=== PATIENT | female | born 1970 | race American Indian/Alaskan Native ===

== ENCOUNTER 2017-08-27 13:12 | Outpatient (CLI) | payer OTHER ==
--- NOTE | 2017-08-28 07:52 | Mammography Report ---
Screening mammogram: The patient had reduction surgery bilaterally. There is mild architectural change bilaterally consistent with prior surgical procedures. The finding is not otherwise remarkable and there is a generally fatty-replaced breast pattern. CAD used. Impression: Benign breast pattern. Recommendation: Annual mammogram followup. BI-RADS CATEGORY: 1 = Negative ACR BI-RADS MAMMOGRAPHIC CODES: 0 = Needs additional imaging evaluation; 1 = Negative; 2 = Benign; 3 = Probably benign; 4 = Suspicious; 5 = Malignant; 6 = Known biopsy-proven malignancy COMMENT: 1. Dense breast tissue, i.e., adenosis, fibrocystic changes, etc., may obscure an underlying neoplasm. 2. Approximately 10% of cancers are not detected with mammography. 3. A negative mammography report should not delay biopsy if a clinically suspicious mass is present.
== END 2017-08-27 13:13 | disposition home or self-care (01) ==
LOC: MAMMO 13:12
PROVIDERS: ATTEND Family Medicine
DX: Z12.31 Encounter for screening mammogram for malignant neoplasm of breast (principal)
CPT/HCPCS: 77067

== ENCOUNTER 2019-07-17 05:40 | Day surgery (SDC) | payer OTHER ==
[~2019-07-17 05:40] MED LIST: LACTATED RINGERS 1,000 ML IV SCH; SODIUM CHLORIDE 0.9% IRR 1,500 ML BOTTLE IR ONE
[2019-07-17] MEDS ORDERED: SCOPOLAMINE TRANSDERMAL PATCH 72 HR TD NR (06:00)
[2019-07-17] MEDS ORDERED: ceFAZolin/Water 2 GM/20 ML 2 GM/20 ML SYRINGE IV NR (06:00)
[2019-07-17] MEDS ORDERED: ENOXAPARIN 40 MG/0.4 ML INJ SUB-Q SCH (06:00)
[2019-07-17] MEDS ORDERED: GABAPENTIN 300 MG CAP PO NR (06:00)
[2019-07-17] MEDS ORDERED: CELECOXIB 200 MG CAP PO NR (06:00)
[2019-07-17] MEDS ORDERED: MIDAZOLAM 2 MG/2 ML INJ IV NR (06:00)
[2019-07-17] MEDS ORDERED: BACTERIOSTATIC SODIUM CHLORIDE 0.9% 30 ML VIAL INFILTRATI ONE (06:34)
[2019-07-17] MEDS ORDERED: SODIUM CHLORIDE 0.9% 1000 ML 1,000 ML, EPINEPHrine/PF 1:1,000 1 MG, LIDOCAINE 1% 20 mL ... IJ SCH (07:00)
[2019-07-17] MEDS ORDERED: LIDOCAINE (1%) 10 MG/1 ML VIAL 20 ML MDV ONE (07:14)
--- NOTE | 2019-07-17 07:17 | Anesthesia Day of Surgery ---
Anesthesia Day of Surgery - Day of Surgery Patient Examined: Yes Patient H&P Reviewed: Yes Patient is NPO: Yes
[2019-07-17] MEDS ORDERED: HYDROmorphone 1 MG/1 ML INJ IV PRN (07:20)
[2019-07-17] MEDS ORDERED: ONDANSETRON 4 MG/2 ML INJ IV PRN (07:20)
--- NOTE | 2019-07-17 07:20 | Anesthesia Consultation ---
Anesthesia Consult and Med Hx Date of service: 07/17/19 - Airway Anesthetic Teeth Evaluation: Crowns (BROKEN) ROM Head & Neck: Adequate Mental/Hyoid Distance: Adequate Mallampati Class: Class II Intubation Access Assessment: Good - Pre-Operative Health Status ASA Pre-Surgery Classification: ASA3 Proposed Anesthetic Plan: General - Pulmonary Hx Sleep Apnea: Yes - Cardiovascular System Hx Coronary Artery Disease: No (ETT 2018 OK per pt) - Central Nervous System Hx Psychiatric Problems: Yes (Bipolar/Anxiety/Depression) - Gastrointestinal Hx Gastroesophageal Reflux Disease: Yes (Had gastric bypass and then reversal) - Hematic Hx Anemia: Yes - Other Systems Hx Alcohol Use: Yes ([place] WINE) Hx Substance Use: No Hx Cancer: No Hx Obesity: Yes (BMI 32)
[2019-07-17] MEDS ORDERED: NEOSTIGMINE 10MG/10 ML INJ MDV ONE (07:41)
[2019-07-17] MEDS ORDERED: dexAMETHasone 20 MG/5 ML VIAL ONE (07:41)
[2019-07-17] MEDS ORDERED: ONDANSETRON 4 MG/2 ML INJ ONE (07:41)
[2019-07-17] MEDS ORDERED: ROCURONIUM 50 MG/5 ML INJ IV ONE (07:41)
[2019-07-17] MEDS ORDERED: SUCCINYLCHOLINE CHLORIDE 200 MG/10 ML INJ MDV ONE (07:41)
[2019-07-17] MEDS ORDERED: LIDOCAINE MPF (2%) 20 MG/1 ML VIAL 5 ML ONE (07:41)
[2019-07-17] MEDS ORDERED: fentaNYL 250 MCG/5 ML INJ ONE (07:41)
[2019-07-17] MEDS ORDERED: propofoL 200 MG/20 ML VIAL IV ONE (07:41)
[2019-07-17] MEDS ORDERED: PHENYLEPHRINE/NS 1,000 MCG/10 ML SYRINGE (OR USE) IV ONE (07:41)
[2019-07-17] MEDS ORDERED: GLYCOPYRROLATE 0.4 MG/2 ML INJ ONE (07:41)
[2019-07-17] MEDS ORDERED: LIDOCAINE 1%/EPINEPHRINE 1:100,000 VIAL (20 ML) INFILTRATI ONE ×3 (08:07→08:23)
[2019-07-17] MEDS ORDERED: LIDOCAINE (1%) 10 MG/1 ML VIAL 20 ML MDV INFILTRATI ONE ×2 (08:29)
[2019-07-17] MEDS ORDERED: SODIUM CHLORIDE 0.9% 1000 ML IV SOLN IJ ONE (08:29)
[2019-07-17] MEDS ORDERED: EPINEPHrine/PF (1:1,000) 1 MG/1 ML INJ IV ONE (08:29)
[2019-07-17] MEDS ORDERED: SODIUM CHLORIDE 0.9% IRR 1,500 ML BOTTLE IR ONE (11:45)
[2019-07-17] MEDS ORDERED: HYDROmorphone 1 MG/1 ML INJ ONE ×2 (12:02→12:07)
--- NOTE | 2019-07-17 12:26 | Operative Report ---
Operative Report Operative Report: Plastic Surgery Operative Note Preoperative Diagnosis: Unacceptable cosmetic appearance Postopertive Diagnosis: Same Procedure: Full lipoabdominoplasty Surgeon: Dr. Elena Wagner Place Change Roof Bolter: SALINA Trotter Anesthesia: General endotracheal EBL: 50cc Indications: This patient is a 49 year old AAF who presented with complaint of excess skin of the abdomen resultant from massive weight loss with gastric bypass. After her surgery, she had a tummy tuck performed by another surgeon, and reports that she gained some weight from that point. Her gastric bypass was adjusted and she then lost the weight that she gained. The result was recurrence of excess skin of the lower abdomen. She never had liposuction with her original tummy tuck and was interested in having a procedure done to improve her abdominal contour. We discussed how the upper part of her abdomen might always be protuberant despite liposuction and/or rectus abdominis plication due to the presence of visceral fat. We discussed the benefits and risks of surgery including skin and umbilical necrosis, bleeding, infection, hematoma, seroma, scarring, fat necrosis, scarring, asymmetry and the need for further surgery. Patient understands and accepts these risks and desires to proceed with surgery. Procedure: After marking in preoperative holding the patient was brought into the operating room and placed supine on the OR table. After induction of adequate general endotracheal anesthesia, the patient's abdomen was prepped and draped in the usual sterile surgical fashion. To begin, markings were refreshed and 1% lidocaine with epinephrine was injected into the incisions. Using an 11 blade, cannula entry incisions were made in the lower abdomen, and 2 L of tumescent solution was infiltrated into the tissues of the abdomen and flanks. Power assisted liposcution was performed until aspirate was blood-tinged. We then began the tummy tuck portion of the procedure, creating a lower abdominal incision using a 10 blade, which was carried through subcutaneous tissue using the electrocautery. This dissection along the rectus fascia was carried cephalad to the xiphoid process. Of note, a supraumbilical hernia of pre- peritioneal fat was reduced and the defect closed over with 2-0 PDS. After which point rectus diastasis (measuring 5 cm at its widest) was repaired using 0 PDO Quill suture. The bed was then placed in a beach chair position and the lower abdominal pannus was marked and sharply excised. The part of the abdominal skin flap from which the umbilicus was excised was too high to completely remove and there was extensive horizontal laxity of the lower abdominal skin flap, so ultimately the lower abdominal incision was made into a "T" intersection at midline where her umbilicus used to be. A 19 Fr Jerad drain was placed and secured with a 2-0 Nylon suture and we began closure of her incis ions in 3 layers beginning with a PDO Quill suture to approximate Wilbert's fascia follwed by 3-0 Monoderm Quill in 2 layers. The umbilicus was delivered through the abdominal skin flap and secured with 2-0 Monocryl and 4-0 subcuticular sutures. All incisions were then sealed with Dermabond. All areas where incisions were placed were then dressed with abdominal pads and the patient was then awakened from general anesthesia and an abdominal binder was placed. She was then transferred to PACU in stable condition. There were no complications. All sponge, needle and instrument counts were correct at the end of the case.
[2019-07-17 14:44] VITALS: BP 114/67
--- NOTE | 2019-07-17 15:36 | Post Anesthesia Evaluation ---
- Post Anesthesia Evaluation Patient Participated: Yes Airway Patent: Yes Stable Respiratory Function: Yes Nausea/Vomiting: No Temp > 96.8F: Yes Pain Manageable: Yes Adequeate Hydration: Yes Anesthesia Complications: No
== END 2019-07-17 05:41 | disposition home or self-care (01) ==
LOC: OR 05:40
PROVIDERS: ATTEND Plastic Surgery
DX: Z41.1 Encounter for cosmetic surgery (principal); E78.00 Pure hypercholesterolemia, unspecified; G43.909 Migraine, unspecified, not intractable, without status migrainosus; G47.30 Sleep apnea, unspecified; E66.9 Obesity, unspecified; K21.9 Gastro-esophageal reflux disease without esophagitis; M19.90 Unspecified osteoarthritis, unspecified site; F31.9 Bipolar disorder, unspecified; F41.9 Anxiety disorder, unspecified; Z68.32 Body mass index [BMI] 32.0-32.9, adult; Z72.89 Other problems related to lifestyle; Z79.899 Other long term (current) drug therapy; Z90.710 Acquired absence of both cervix and uterus; Z96.643 Presence of artificial hip joint, bilateral; Z98.890 Other specified postprocedural states; Z86.2 Personal history of diseases of the blood and blood-forming organs and certain disorders involving the immune mechanism
CPT/HCPCS: 15830; 15847; 36415; J0171; J0330; J0690; J1100; J1170; J1650; J2250; J2370; J2405; J2704; J2710; J3010; J7030; J7120